=== PATIENT | female | born 1940 | race Caucasian/White ===

== ENCOUNTER 2020-12-10 13:22 | Inpatient (IN) ==
[2020-12-10 15:12] LABS: Basophils % 0.2 % (0.0-0.8); Hematocrit 36.9 VOL% (35.7-47.0); Hemoglobin 12.6 GM/DL (12.0-16.0); Immature Granulocytes % 0.5 %; Immature Granulocytes Absolute 0.06 #; Lymphocytes # 1.1 10*3/uL (1.4-4.0); Lymphocytes % 8.7 % (21.3-54.2); Mean Corpuscular HGB Conc 34.1 GM/DL (32-36); Mean Corpuscular Volume 85.8 FL (87-102); Mean Platelet Volume 10.1 FL (9.6-12.0); Monocytes % 4.9 % (1.7-12.7); Neutrophils % 85.7 % (38.7-73.9); Platelet Count 260 T/CUMM (130-400); Red Cell Distribution Width 12.7 % (9.3-17.3); White Blood Count 12.9 T/CUMM (4-12)
[2020-12-10 15:17] LABS: Bacteria,Urine Occasional /HPF (Few); Bilirubin,Urine Negative (Negative); Blood, Urine Small mg/dL (Negative); Glucose,Urine (UA) Negative (Negative); Ketones,Urine Negative (Negative); Nitrite,Urine Negative (Negative); Protein,Urine Negative; RBC,Urine 2 /HPF (0-4); Squamous Epithelial Cell,Urine Occasional /HPF (0-10); Urine Appearance CLOUDY (Clear); Urine Color Straw (Yellow); Urine Specific Gravity 1.004 (1.001-1.035); Urine Urobilinogen < 2.0 EU/DL (0.2-1.0)
[2020-12-10 15:30] LABS: Bilirubin,Total 0.7 MG/DL (0.20-1.00); Calcium 8.7 MG/DL (8.5-10.1); Osmolality,Calculated 257.1 MOS/KG (273-304); Potassium 3.4 MMOL/L (3.5-5.1); Total Protein 7.1 G/DL (6.4-8.2)
[2020-12-10] MEDS ORDERED: ACETAMINOPHEN 325 MG TABLET PO PRN (17:04)
[2020-12-10] MEDS ORDERED: DEXTROSE 50% 25 GM/50 ML VIAL IV PRN (17:04)
[2020-12-10] MEDS ORDERED: ONDANSETRON 4 MG/2 ML VIAL IV PRN (17:04)
[2020-12-10] MEDS ORDERED: GLUCAGON 1 MG VIAL IM PRN (17:04)
[2020-12-10] MEDS ORDERED: ENOXAPARIN 40 MG/0.4 ML SYRINGE SUBCUT SCH (17:30)
[2020-12-10] MEDS: ASPIRIN 325 MG TABLET PO SCH (18:50)
[2020-12-10] MEDS: hydrALAZINE 20 MG/1 ML VIAL IV PRN (21:10)
[2020-12-10] MEDS: GLUTAMINE 500 MG PO SCH (21:13)
[2020-12-10] MEDS: SODIUM CHLORIDE 0.9% 1,000 ML IV SCH (22:37)
[2020-12-10] MEDS ORDERED: ZALEPLON 5 MG CAPSULE PO STA (22:52)
[2020-12-10] MEDS ORDERED: ZALEPLON 5 MG CAPSULE PO PRN (22:52)
[2020-12-10] MEDS ORDERED: CLORAZEPATE 3.75 MG TABLET PO PRN (22:53)
[2020-12-11 04:30] LABS: Basophils % 0.3 % (0.0-0.8); Eosinophils % 0.1 % (0.00-10.9); Hemoglobin 12.3 GM/DL (12.0-16.0); Immature Granulocytes % 0.3 %; Immature Granulocytes Absolute 0.03 #; Lymphocytes # 1.2 10*3/uL (1.4-4.0); Lymphocytes % 12.4 % (21.3-54.2); Mean Corpuscular HGB Conc 35.1 GM/DL (32-36); Mean Corpuscular Volume 85.2 FL (87-102); Mean Platelet Volume 10.7 FL (9.6-12.0); Monocytes % 8.7 % (1.7-12.7); Neutrophils % 78.2 % (38.7-73.9); Platelet Count 253 T/CUMM (130-400); Red Blood Count 4.11 MC/CUMM (3.8-5.5); White Blood Count 9.3 T/CUMM (4-12)
[2020-12-11 05:02] LABS: Calcium 8.6 MG/DL (8.5-10.1); Osmolality,Calculated 270.2 MOS/KG (273-304); Potassium 2.8 MMOL/L (3.5-5.1); Risk Ratio 2.3; Thyroid Stimulating Hormone 0.652 uIU/ml (0.358-3.74); VLDL Cholesterol 14.2 MG/DL
[2020-12-11] MEDS ORDERED: ASPIRIN 325 MG TABLET PO SCH (09:00)
[2020-12-11] MEDS ORDERED: THYROID 60 MG TABLET PO SCH (09:00)
[2020-12-11] MEDS: ASPIRIN 325 MG TABLET PO SCH (09:12)
[2020-12-11] MEDS: LOSARTAN 50 MG TABLET PO SCH (09:12)
[2020-12-11] MEDS: PANTOPRAZOLE 40 MG TABLET PO SCH (09:12)
[2020-12-11] MEDS: CHOLECALCIFEROL 5,000 UNIT TABLET PO SCH (09:12)
[2020-12-11] MEDS: GLUTAMINE 500 MG PO SCH ×2 (09:21→21:03)
[2020-12-11] MEDS ORDERED: POTASSIUM CHLORIDE RIDER 10 MEQ/100 ML PREMIX IV PRN (10:32)
[2020-12-11] MEDS: SODIUM CHLORIDE 0.9% 1,000 ML IV SCH (13:01)
[2020-12-11] MEDS: APIXABAN 5 MG TABLET PO SCH (21:01)
[2020-12-11] MEDS: hydrALAZINE 20 MG/1 ML VIAL IV PRN (21:16)
[2020-12-12 05:39] LABS: Basophils # 0.1 10*3/uL (0.0-0.2); Basophils % 0.6 % (0.0-0.8); Eosinophils # 0.1 10*3/uL (0.0-0.87); Eosinophils % 1.3 % (0.00-10.9); Hematocrit 37.1 VOL% (35.7-47.0); Hemoglobin 12.6 GM/DL (12.0-16.0); Immature Granulocytes % 0.5 %; Immature Granulocytes Absolute 0.04 #; Lymphocytes # 2.4 10*3/uL (1.4-4.0); Lymphocytes % 28.7 % (21.3-54.2); Mean Corpuscular Volume 87.5 FL (87-102); Mean Platelet Volume 10.4 FL (9.6-12.0); Monocytes % 7.8 % (1.7-12.7); Neutrophils % 61.1 % (38.7-73.9); Platelet Count 258 T/CUMM (130-400); Red Blood Count 4.24 MC/CUMM (3.8-5.5); Red Cell Distribution Width 13.3 % (9.3-17.3); White Blood Count 8.3 T/CUMM (4-12)
[2020-12-12 06:01] LABS: Calcium 8.5 MG/DL (8.5-10.1); Osmolality,Calculated 277.4 MOS/KG (273-304); Potassium 3.4 MMOL/L (3.5-5.1)
[2020-12-12] MEDS ORDERED: THYROID 60 MG TABLET PO SCH (07:30)
[2020-12-12] MEDS: hydrALAZINE 20 MG/1 ML VIAL IV PRN (08:27)
[2020-12-12] MEDS: LOSARTAN 50 MG TABLET PO SCH (08:28)
[2020-12-12] MEDS: CHOLECALCIFEROL 5,000 UNIT TABLET PO SCH (08:28)
[2020-12-12] MEDS: PANTOPRAZOLE 40 MG TABLET PO SCH (08:28)
[2020-12-12] MEDS: ASPIRIN 325 MG TABLET PO SCH (08:28)
[2020-12-12] MEDS: APIXABAN 5 MG TABLET PO SCH (08:28)
[2020-12-12] MEDS ORDERED: POTASSIUM CHLORIDE 20 MEQ TABLET PO ONE (09:00)
[2020-12-12] MEDS ORDERED: LOSARTAN 50 MG TABLET PO SCH (09:00)
[2020-12-12] MEDS: GLUTAMINE 500 MG PO SCH (10:28)
[2020-12-12 15:42] VITALS: BP 160/65
[2020-12-12] MEDS ORDERED: ATORVASTATIN 20 MG TABLET PO SCH (21:00)
[2020-12-13] MEDS ORDERED: ASPIRIN EC 81 MG TABLET PO SCH (09:00)
== END 2020-12-12 17:40 | disposition home health service (06) | DRG 65 ==
LOC: N.ED 13:22 → N.EDINP 17:04 → SUATTDRO 17:04 → N.4E 12-11 10:20
PROVIDERS: ADMIT Internal Medicine Nephrology; ATTEND Internal Medicine